=== PATIENT | male | born 1970 | race American Indian/Alaskan Native ===

== ENCOUNTER 2017-03-14 18:55 | Inpatient (IN) | payer OTHER ==
[2017-03-15] MEDS ORDERED: LEVAQUIN 750MG/150ML 750 MG/150 ML BAG IV ONE ×2 (07:47→09:46)
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
[2017-03-15] MEDS ORDERED: TYLENOL PO PRN (09:59)
[2017-03-15] MEDS ORDERED: PROVENTIL IH PRN (09:59)
[2017-03-15] MEDS ORDERED: DULCOLAX PR PRN (09:59)
[2017-03-15] MEDS ORDERED: ZOFRAN IM PRN (10:03)
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
[2017-03-15] MEDS: HEPARIN SUB-Q SCH ×2 (11:38→22:00)
--- NOTE | 2017-03-15 11:39 | XRay Report ---
XRAY CHEST TWO VIEWS: 03/15/17 09:59:00 CLINICAL: Dry cough for 2 days. Lower rib pain from coughing. Status post mitral valve replacement 2016 and status post CABG in 2007. COMPARISON: None FINDINGS: The heart is mildly enlarged. Prosthetic mitral valve. Median sternotomy wires. Normal pulmonary vessels. Widening of the right pleural space and opacification of the right lung base with a meniscus sign on the frontal view. Mild diffuse opacification in the upper right lung field.The left lung is normally expanded and clear. IMPRESSION: Mild cardiomegaly status post CABG and mitral valve replacement.No CHF. Right pleural effusion.
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
[2017-03-15 12:41] LABS: BUN/Creatinine Ratio 7.3; Calcium 8.3 mg/dL (8.4-10.2); Chloride 92.2 mmol/L (98-107); Creatine Kinase MB 2.5 ng/mL (0.0-4.0); Potassium 3.9 mmol/L (3.6-5.0)
[2017-03-15] MEDS ORDERED: D50W (25GM) Syringe IV PRN (12:44)
[2017-03-15] MEDS ORDERED: ZOFRAN IV PRN (13:10)
[2017-03-15 13:32] LABS: Albumin 3.2 g/dL (3.9-5); Albumin/Globulin Ratio 0.9 %; BUN/Creatinine Ratio 8.77; Bilirubin,Total 0.3 mg/dL (0.1-1.2); Calcium 8.5 mg/dL (8.4-10.2); Chloride 90.6 mmol/L (98-107); Potassium 3.5 mmol/L (3.6-5.0); Total Protein 6.7 g/dL (6.3-8.2)
[2017-03-15 13:33] LABS: Basophils % (Auto) 1.3 % (0.0-1.8); Eosinophils % (Auto) 1.7 % (0.0-4.3); Hematocrit 40.6 % (35.5-45.6); Hemoglobin 13.1 gm/dl (11.8-15.2); Mean Corpuscular HGB Conc 32 % (32-34); Mean Corpuscular Hemoglobin 30 pg (28-32); Mean Corpuscular Volume 93 fl (84-94); Platelet Count 197 K/mm3 (140-440); Red Blood Count 4.38 M/mm3 (3.65-5.03); Red Cell Distribution Width 14.7 % (13.2-15.2)
[2017-03-15 13:34] LABS: INR 1.03 (0.87-1.13); Partial Thromboplastin Time 29.8 Sec. (24.2-36.6)
[2017-03-15 13:47] LABS: Basophils % (Auto) 1.3 % (0.0-1.8); Eosinophils % (Auto) 2.8 % (0.0-4.3); Hematocrit 35.6 % (35.5-45.6); Hemoglobin 11.8 gm/dl (11.8-15.2); Mean Corpuscular HGB Conc 33 % (32-34); Mean Corpuscular Hemoglobin 30 pg (28-32); Mean Corpuscular Volume 90 fl (84-94); Platelet Count 174 K/mm3 (140-440); Red Blood Count 3.96 M/mm3 (3.65-5.03); Red Cell Distribution Width 14.3 % (13.2-15.2); White Blood Count 5.4 K/mm3 (4.5-11.0)
[2017-03-15 15:19] LABS: Basophils % (Auto) 1.3 % (0.0-1.8); Eosinophils % (Auto) 2.1 % (0.0-4.3); Hematocrit 36.1 % (35.5-45.6); Hemoglobin 12.1 gm/dl (11.8-15.2); Mean Corpuscular HGB Conc 34 % (32-34); Mean Corpuscular Hemoglobin 31 pg (28-32); Mean Corpuscular Volume 91 fl (84-94); Platelet Count 161 K/mm3 (140-440); Red Blood Count 3.98 M/mm3 (3.65-5.03); Red Cell Distribution Width 14.3 % (13.2-15.2); White Blood Count 4.7 K/mm3 (4.5-11.0)
[2017-03-15 15:31] LABS: BUN/Creatinine Ratio 8.43; Calcium 8.5 mg/dL (8.4-10.2); Chloride 90.3 mmol/L (98-107); Potassium 3.8 mmol/L (3.6-5.0)
[2017-03-15] MEDS ORDERED: NOVOLOG SUB-Q SCH ×2 (16:30→22:00)
[2017-03-15] MEDS: NOVOLOG SUB-Q SCH (17:03)
[2017-03-15] MEDS: COREG PO SCH (21:54)
[2017-03-15] MEDS ORDERED: LEVEMIR SUB-Q SCH (22:00)
[2017-03-16] MEDS: DIANEAL LOW CALCIUM W/1.5% DEXTROSE IP SCH ×2 (00:28→11:31)
[2017-03-16] MEDS: DIANEAL LOW CALCIUM W/2.5% DEXTROSE IP SCH ×2 (00:28→11:31)
[2017-03-16] MEDS: NOVOLOG SUB-Q SCH ×2 (01:34→09:13)
[2017-03-16 07:51] LABS: BUN/Creatinine Ratio 8.43; Calcium 8.5 mg/dL (8.4-10.2); Chloride 98.6 mmol/L (98-107); Potassium 3.3 mmol/L (3.6-5.0)
[2017-03-16] MEDS ORDERED: LEVEMIR SUB-Q SCH (08:00)
[2017-03-16 08:02] LABS: Basophils % (Auto) 1.3 % (0.0-1.8); Eosinophils % (Auto) 2.8 % (0.0-4.3); Hematocrit 35.5 % (35.5-45.6); Mean Corpuscular HGB Conc 34 % (32-34); Mean Corpuscular Hemoglobin 30 pg (28-32); Mean Corpuscular Volume 89 fl (84-94); Platelet Count 170 K/mm3 (140-440); Red Cell Distribution Width 14.2 % (13.2-15.2); White Blood Count 4.9 K/mm3 (4.5-11.0)
--- NOTE | 2017-03-16 08:42 | Progress Note ---
Hospitalist Physical - Constitutional Vitals: Temp Pulse Resp BP Pulse Ox 98.9 F 92 H 18 156/94 96 03/16/17 07:25 03/16/17 07:25 03/16/17 07:25 03/16/17 07:25 03/16/17 07:25 Results - Labs CBC & Chem 7: 03/16/17 07:04 03/16/17 07:04 Labs: Laboratory Last Values WBC 4.9 K/mm3 (4.5-11.0) 03/16/17 07:04 RBC 4.00 M/mm3 (3.65-5.03) 03/16/17 07:04 Hgb 12.0 gm/dl (11.8-15.2) 03/16/17 07:04 Hct 35.5 % (35.5-45.6) 03/16/17 07:04 MCV 89 fl (84-94) 03/16/17 07:04 MCH 30 pg (28-32) 03/16/17 07:04 MCHC 34 % (32-34) 03/16/17 07:04 RDW 14.2 % (13.2-15.2) 03/16/17 07:04 Plt Count 170 K/mm3 (140-440) 03/16/17 07:04 Lymph % (Auto) 14.5 % (13.4-35.0) 03/16/17 07:04 [place] % (Auto) 13.5 % (0.0-7.3) H 03/16/17 07:04 Eos % (Auto) 2.8 % (0.0-4.3) 03/16/17 07:04 Baso % (Auto) 1.3 % (0.0-1.8) 03/16/17 07:04 Lymph # 0.7 K/mm3 (1.2-5.4) L 03/16/17 07:04 [place] # 0.7 K/mm3 (0.0-0.8) 03/16/17 07:04 Eos # 0.1 K/mm3 (0.0-0.4) 03/16/17 07:04 Baso # 0.1 K/mm3 (0.0-0.1) 03/16/17 07:04 Seg Neutrophils % 67.9 % (40.0-70.0) 03/16/17 07:04 Seg Neutrophils # 3.3 K/mm3 (1.8-7.7) 03/16/17 07:04 PT 13.4 Sec. (12.2-14.9) 03/14/17 19:55 INR 1.03 (0.87-1.13) 03/14/17 19:55 APTT 29.8 Sec. (24.2-36.6) 03/14/17 19:55 Sodium 137 mmol/L (137-145) D 03/16/17 07:04 Potassium 3.3 mmol/L (3.6-5.0) L 03/16/17 07:04 Chloride 98.6 mmol/L (98-107) 03/16/17 07:04 Carbon Dioxide 24 mmol/L (22-30) 03/16/17 07:04 Anion Gap 18 mmol/L 03/16/17 07:04 BUN 43 mg/dL (9-20) H 03/16/17 07:04 Creatinine 5.1 mg/dL (0.8-1.5) H 03/16/17 07:04 Estimated GFR 15 ml/min 03/16/17 07:04 BUN/Creatinine Ratio 8.43 % 03/16/17 07:04 Glucose 183 mg/dL (75-100) H 03/16/17 07:04 POC Glucose 199 (70-105) H 03/16/17 06:00 Calcium 8.5 mg/dL (8.4-10.2) 03/16/17 07:04 Total Bilirubin 0.30 mg/dL (0.1-1.2) 03/15/17 10:20 AST 15 units/L (5-40) 03/15/17 10:20 ALT 15 units/L (7-56) 03/15/17 10:20 Alkaline Phosphatase 117 units/L (35-129) 03/15/17 10:20 CK-MB (CK-2) 2.5 ng/mL (0.0-4.0) 03/14/17 19:55 Troponin T 0.060 ng/mL (0.00-0.029) H 03/14/17 19:55 Total Protein 6.8 g/dL (6.3-8.2) 03/15/17 11:29 Albumin 3.2 g/dL (3.9-5) L 03/15/17 10:20 Albumin/Globulin Ratio 0.9 % 03/15/17 10:20 Triglycerides 217 mg/dL (2-149) H 03/14/17 19:55 Cholesterol 165 mg/dL (50-199) 03/14/17 19:55 LDL Cholesterol Direct 81 mg/dL (50-130) 03/14/17 19:55 HDL Cholesterol 41 mg/dL (40-59) 03/14/17 19:55 Cholesterol/HDL Ratio 4.02 % 03/14/17 19:55
--- NOTE | 2017-03-16 09:02 | Progress Note ---
Assessment and Plan - Patient Problems (1) ESRD on peritoneal dialysis Status: Chronic Plan to address problem: Continue PD using the cycler with his home setting. APD setting; 8 hrs, 9-10 Lts with 1.5 and 2.5% solution. (2) Fever Status: Acute Qualifiers: Fever type: F Encounter type: E Plan to address problem: Abdomen exam is benign. PD fluid is clear. No e/o peritonitis. (3) Anemia of renal disease Status: Chronic Plan to address problem: Monitor. Subjective Date of service: 03/16/17 Interval history: Patient is feeling ok. No new complaint. Objective - Vital Signs Vital signs: Vital Signs - 12hr 03/15/17 03/16/17 03/16/17 21:54 00:19 00:43 Temperature 99.3 F Pulse Rate 100 H 92 H Pulse Rate [ 82 Left Radial] Respiratory 20 18 Rate Blood Pressure 160/100 151/85 O2 Sat by Pulse 98 Oximetry 03/16/17 07:25 Temperature 98.9 F Pulse Rate 92 H Pulse Rate [ Left Radial] Respiratory 18 Rate Blood Pressure 156/94 O2 Sat by Pulse 96 Oximetry - General Appearance General appearance: well-developed, well-nourished, appears stated age, other ( no distress) EENT: ATNC, PERRL, mucous membranes moist, hearing intact, vision intact Neck: supple Respiratory: Present: Clear to Ascultation, Decreased Breath Sounds (right base) Cardiology: regular, S1S2, no murmurs Gastrointestinal: normoactive bowel sounds, other (PD catheter noted) Integumentary: no rash Neurologic: no focal deficit, no asterixis, alert and oriented x3 Musculoskeletal: other (no edema) Psychiatric: mood/affect appropriate, cooperative - Lab 03/16/17 07:04 03/16/17 07:04 Most recent lab results Calcium 8.5 mg/dL (8.4-10.2) 03/16/17 07:04
[2017-03-16 09:24] LABS: INR 1.04 (0.87-1.13)
[2017-03-16] MEDS ORDERED: LEVAQUIN 750MG/150ML 750 MG/150 ML BAG IV SCH (10:00)
[2017-03-16] MEDS ORDERED: K-DUR PO ONE (10:00)
[2017-03-16] MEDS ORDERED: PEPCID PO SCH (10:00)
[2017-03-16] MEDS ORDERED: PROzac PO SCH (10:00)
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
[2017-03-16] MEDS: HEPARIN SUB-Q SCH (11:30)
[2017-03-16] MEDS: COREG PO SCH (11:30)
[2017-03-16 11:31] VITALS: BP 160/92
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
[2017-03-17] MEDS ORDERED: LEVAQUIN 500MG/100ML 500 MG/100 ML BAG IV SCH (10:00)
== END 2017-03-16 12:40 | disposition home or self-care (01) | DRG 683 ==
LOC: ED 18:55 → 3A 03-15 09:59
PROVIDERS: ADMIT Internal Medicine; ATTEND Internal Medicine
PROC: 3E1M39Z Irrigation of Peritoneal Cavity using Dialysate, Percutaneous Approach (ICD-10-PCS; principal; 2017-03-15)
DX: N18.6 End stage renal disease (principal); J90 Pleural effusion, not elsewhere classified; D63.1 Anemia in chronic kidney disease; E11.22 Type 2 diabetes mellitus with diabetic chronic kidney disease; Z95.1 Presence of aortocoronary bypass graft; Z95.5 Presence of coronary angioplasty implant and graft; Z95.4 Presence of other heart-valve replacement; Z99.2 Dependence on renal dialysis; Z88.5 Allergy status to narcotic agent
CPT/HCPCS: 36415; 71020; 80048; 80053; 80061; 82553; 82962; 84160; 84484; 85025; 85610; 85730; 87040; 93005; 93010; 96365; A9270-GY; J1644; J1815; J1818; J1956